=== PATIENT | female | born 1990 | race Caucasian/White ===

== ENCOUNTER 2024-06-28 13:25 | Emergency (ER) | payer OTHER ==
[~2024-06-28] VITALS: Ht 170.1 cm; Wt 95.3 kg
[2024-06-28] MEDS ORDERED: FLUOXETINE HCL60 MG PO (13:38)
[2024-06-28] MEDS ORDERED: METHYLPHENIDATE27 M3 PO (13:38)
[2024-06-28] MEDS ORDERED: Ketorolac Tromethamine 15 MG/ML VIAL IV ONE (13:45)
[2024-06-28] MEDS ORDERED: SODIUM CHLORIDE 0.9% 1,000 ML IV ONE (13:45)
[2024-06-28] MEDS ORDERED: ACETAMINOPHEN 325 MG TAB PO ONE (13:45)
[2024-06-28] MEDS ORDERED: Metoclopramide Hydrochloride 10 MG/2 ML VIAL IV ONE (13:45)
[2024-06-28] MEDS ORDERED: diphenhydrAMINE hydrochloride 50 MG/ML VIAL IV ONE (13:45)
[2024-06-28 13:58] LABS: BASO % 0.4 % (0.0-1.0); EOS # 0.1 10*3/uL (0.0-0.4); EOS % 0.8 % (1.0-4.0); HEMATOCRIT 42.2 % (37.0-47.0); MEAN CELL VOLUME 90.2 fl (81.0-99.0); MEAN CORPUSCULAR HGB 28.6 pg (27.0-31.0); MEAN CORPUSCULAR HGB CONC 31.8 g/dl (33.0-37.0); MEAN PLATELET VOLUME 10.2 fl (9.6-12.3); MONO # 0.5 10*3/uL (0.1-1.0); MONO % 6.4 % (3.0-9.0); NEUT # 6.5 10*3/uL (2.3-7.9); NEUT % 77.1 % (47.0-73.0); PLATELET COUNT AUTOMATED 297 10*3/uL (130-400); RED BLOOD COUNT 4.68 10*6/uL (4.10-5.10); WHITE BLOOD COUNT 8.5 10*3/uL (4.8-10.8)
[2024-06-28 14:21] LABS: BUN 9 mg/dl (9-23); CHLORIDE 107 mmol/L (98-107); POTASSIUM 3.7 mmol/L (3.4-5.1)
== END 2024-06-28 16:38 | disposition home or self-care (01) ==
LOC: ED 13:25
PROVIDERS: Nurse Practitioner Family
DX: G44.209 Tension-type headache, unspecified, not intractable (principal); F41.9 Anxiety disorder, unspecified; R00.2 Palpitations; R42 Dizziness and giddiness; F90.9 Attention-deficit hyperactivity disorder, unspecified type; Z98.890 Other specified postprocedural states; Z98.51 Tubal ligation status